=== PATIENT | male | born 1950 | race Two or more races ===

== ENCOUNTER → 2021-08-07 | Day surgery (SDC) | payer MEDICARE, BC ==
[~2021-08-07] VITALS: Ht 180.3 cm; Wt 77.1 kg
[~2021-08-07] MED LIST: BENA10TA14 PO; BUPIVACAINE HCL 50 ML ONE; EPINEPHrine HCL 1 MG/1 ML AMP ONE; GLIP5TAB12 PO; HYDROmorphone HCL 2 MG/ML VL IV PRN; LIDOCAINE 2% (LOCAL ANESTH.) PF 5ml SDV ONE; METF-370 PO; MIDAZOLAM HCL 2MG/2ML 2ml VIAL (1mg/ml) ONE; ONDANSETRON HCL 4 MG/2 ML VIAL IV PRN; ONDANSETRON HCL 4 MG/2 ML VIAL ONE; PROPOFOL 10 MG/ML 20 ML IV ONE; ROCURONIUM 10MG/ML 10ML VIAL IV ONE; SIMV10TA84 PO; ZOLP12.569 PO; ceFAZolin 1GM/50ML 100 ML IV ONE; fentaNYL CITRATE 5 ML ONE
[2021-08-07 14:05] VITALS: BP 146/84
== END | disposition home or self-care (01) ==
LOC: SUR 07:55
PROVIDERS: ATTEND Orthopaedic Surgery Sports Medicine
DX: S43.431A Superior glenoid labrum lesion of right shoulder, initial encounter (principal); M75.101 Unspecified rotator cuff tear or rupture of right shoulder, not specified as traumatic; M75.41 Impingement syndrome of right shoulder; M19.011 Primary osteoarthritis, right shoulder; M65.9 Synovitis and tenosynovitis, unspecified; G89.29 Other chronic pain; E11.9 Type 2 diabetes mellitus without complications; E03.9 Hypothyroidism, unspecified; Z90.49 Acquired absence of other specified parts of digestive tract; Z98.890 Other specified postprocedural states; Z79.899 Other long term (current) drug therapy; Z20.822 Contact with and (suspected) exposure to COVID-19; Z87.891 Personal history of nicotine dependence; X58.XXXA Exposure to other specified factors, initial encounter; Y93.89 Activity, other specified; Y92.89 Other specified places as the place of occurrence of the external cause; Y99.8 Other external cause status
CPT/HCPCS: 29822; 29824; 29826; 29827; 82962; J0171; J0690; J2001; J2250; J2405; J2704; J3010; J3490; U0003; A4565